=== PATIENT | female | born 1950 | race Caucasian/White ===

== ENCOUNTER → 2017-03-11 | Day surgery (SDC) | payer MEDICARE, OTHER ==
[~2017-03-11] VITALS: Ht 165.1 cm; Wt 61.9 kg
[~2017-03-11] MED LIST: AZU500 PO; Dexamethasone 4 mg/mL Inj IVPUSH PRN; EPHEDrine Sulfate 50 mg/mL Inj IVPUSH PRN; ESTR42.52 VG; GABA-500 PO; HYDROcodone-APAP 5-325 mg Tablet PO PRN; HYDROmorphone 1 mg/mL Inj IVPUSH PRN; HYOS0.3740 PO; Lactated Ringer's 1,000 ML IV ONE; Lactated Ringer's 1,000 ML IV SCH; Lactated Ringer's 500 ML IV PRN; Lidocaine 1%-Epi 1:100,000 20 mL Inj NERVEBLOCK ONE; MULT-1073 PO; MetoCLOpramide 5 mg/mL 2 mL Inj IVPUSH PRN; NABU750T PO; NORE1TAB7 PO; Ondansetron 2 mg/mL 2 mL Inj IVPUSH PRN; POLY17PO6 PO; Phenylephrine 10,000 mCg/mL Inj IVPUSH PRN; Propofol 10,000 mCg/mL 20 mL Inj ONE; TAZA30CR TP; TIMO1DRO3 OP; ZLP5T PO; [UNRECOGNIZED DRUG - CODE] PO; fentaNYL-PF 50 mCg/mL 2 mL Inj IVPUSH PRN; fentaNYL-PF 50 mCg/mL 2 mL Inj ONE
[2017-03-11 06:10] VITALS: BP 138/86; PULSE 71; RESP 17; O2SAT 99
--- NOTE | 2017-03-11 07:22 | PCM.HPANE ---
Patient Data Date of Service: Mar 11, 2017 Surgeon Admitting Provider: Attending Provider:Aaron Thomas DO Primary Care Physician:Sylvester Gilliland MD Other Provider:Willy Sanders Anesthesia Reason for Visit Left Middle Trigger Finger Ht/WT & BMI Height (Feet): 5 Height (Inches): 5.00 Weight (Kilograms): 61.9 Body Mass Index 22.00 Allergies Coded Allergies: No Known Allergies (Unverified , 03/05/17) Past Anesthesia History Anesthesia History: Denies:: Abnormal Airway, Anesthesia Reactions, Difficult Intubation, Fam Anesthesia Reaction, Fam Malignant Hypertherm, Malignant Hyperthermia Diabetes History Hx Diabetes?: No Medications Home Meds Incl Beta Joseline: No Reported Medications Multivit-Min/Folic Acid/Biotin (Women Multivit W-Biotin Gummy)200 Mcg-300 Mcg Tab.chew1 Each PO 03/05/17 Multivits-Min/FA/Lycopene/Lut (Centrum Silver Tablet)1 Each Tablet1 Each PO 03/05/17 Sulfasalazine 500 Mg Tablet1,000 Mg PO BID 30 Days Ref 0 03/05/17 Timolol Maleate/Pf (Timoptic 0.25% Ocudose Drop)1 Each Droperette1 Each OP 03/05/17 Tazarotene (Tazorac)30 Gm Cream..g.30 Gm TP 03/05/17 Nabumetone 750 Mg [id number] Mg PO BID 30 Days 03/05/17 Polyethylene Glycol 3350 (Miralax)17 Gm Powd.pack17 Gm PO 03/05/17 Hyoscyamine ER 0.375 Mg Tablet0.375 Mg PO BID 03/05/17 Gabapentin 100 Mg [id number] Mg PO DAILY 30 Days Ref 0 03/05/17 Norethind AC/Ethinyl Estradiol (Femhrt 0.5 mg-2.5 Mcg Tablet)1 Each Tablet1 Each PO 03/05/17 Estradiol (Estrace)42.5 Gm Cream.appl1 G VG UD #1 TUBE Ref 0 03/05/17 Zolpidem (Ambien)5 Mg Tablet5 Mg PO HS PRN For Insomnia Ref 0 03/05/17 History History of ENT Problems?: No HEENT History: Denies:: Abnormal Airway Cataracts Difficult Intubation Dysphagia Glaucoma Hearing Problem Sinus Problem TMJ Denture Type: None Teeth Condition: Within Normal Limits Hx of Heart Problems?: No Cardiovascular History: Denies:: AICD Abdominal Aortic Aneurism Atrial Fibrillation Cardiac Surgery Chest Pain Congestive Heart Failure Coronary Artery Disease Edema Heart Murmur Hypertension Irregular Heartbeat Pacemaker Peripheral Vascular Rheumatic Fever Thrombophlebitis Valvular Heart Disease Hx of Respiratory Problem?: No Respiratory History: Denies:: Asthma Hx Neurologic Problems?: No Hx of GI Problems?: No Other GI Pertinent History: Hx IBS Hx of Problems?: No Genitourinary History: Denies:: HX of Hemodialysis Kidney Stones Urinary Tract Infection HX of Peritoneal Dialysis: No Skin History: Positive for:: History Skin Disorders? (mild exzemia) Denies:: Pressure Ulcers Hx Musculoskeletal Problems?: Yes Musculoskeletal History: Positive for:: Osteoarthritis (Hands, rt knee) Denies:: Back Injury Degenerative Joint Fibromyalgia Joint Replacement Musculoskeletal Trauma Myasthenia Gravis Rheumatoid Arthritis Systemic Lupus Hx of Psycho/Social Problems?: No Hx Surgeries?: Yes (Tubal, trigger finger, macular hole repaired, cataract surg.) Hx Any Other Health Problems?: Yes Other History: Positive for:: Hospitalization (child ) Denies:: Cancer Endocrine Disease History Blood Transfusions: Positive for:: Accept Blood Products? Denies:: Blood Transfusions Hx Diabetes: No Hx Alcohol Use: NoHx Substance Use: No Stop/Bang S-Snoring: Do You Snore Loudly: No T-Tired: feel tired, fatigued: No O-Obsered: Observed not breath: No P-Blood Pressure: treated: No B- Body Mass Index > 35 kg/m2: No A- Age over 50: Yes N- Neck Large Circumference: No G- Gender Male: No LOLLY Total Score: 1 LOLLY Risk Assessment: Low Risk, <3 Yes Risk Assessment Category Category 1A: Patient has history of documented sleep apnea, and HAS NOT received any narcotic, sedative or anesthesia administration during this stay. Category 1B: Patient has history of documented sleep apnea, and HAS received any narcotic , sedative or anesthesia administration during this stay Category 2: Patient has SUSPECTED Obstructive Sleep Apnea, and HAS received any narcotic , sedative or anesthesia administration during this stay. Category 3: Patient has SUSPECTED Obstructive Sleep Apnea and HAS NOT received narcotic, sedative or anesthesia administration during this stay. Category 4: Outpatient in Procedural Areas with known sleep apnea or who screen positive for High Risk via the STOP/BANG questionnaire. Exam Exam Vital Signs Vital Signs Date Time Temp Pulse Resp B/P Pulse Ox O2 Delivery O2 Flow Rate FiO2 03/11/17 06:10 36.5 71 17 138/86 99 Room Air General Appearance: Alert, Oriented X3, Cooperative, No Acute Distress HEENT/AIRWAY: MP 2 Lungs: Clear to Auscultation, Normal Air Movement Heart: Exam Unremarkable, Regular Rate/Rhythm, No Murmurs/Rubs/Gallops Meds/Labs/Diagnostics Admission Meds Current Medications Lactated Ringer's (Lr) 1,000 ml @ ud STK-MED ONCE IV Last administered on 03/11t 06:26; Start 03/11/17 at 06:26; Stop 03/11/17 at 06:27; Status DC Plan Impression Patient chart reviewed, patient interviewed and anesthestic plan with risks, benefits, and alternatives discussed, and informed consent obtained. NPO per Anesth. Guidelines: Yes ASA Physical Status: ASA2 Mod Systemic Disease Anesthetic Plan: MAC Bene/Risks/Altern/Consents: Yes HP Complete Prior to Induction: Yes Win Olmstead MD Mar 11, 2017 07:22
[2017-03-11 07:48] VITALS: BP 134/59; PULSE 76; RESP 16; O2SAT 100
--- NOTE | 2017-03-11 07:52 | PCM.ANEP1 ---
Post Anesthesia PACU Phase 1 Assessment Date of Service: Mar 11, 2017 Vital Signs 36.6 134/59 74 96% RA Anesthetic Administered: MAC Level of Alertness: Awake, talking LAGUNA's with Equal Strength: Yes Pain: No Nausea or Vomiting: No CV Function & Hydration Stable: Yes Airway Device: Oxygen Delivery: Room Air Lungs: Clear to Auscultation, Normal Air Movement PACU Phase 2 Assessment Complications: No Follow up Care: N/A Patient Instructions Provided: Yes Win Olmstead MD Mar 11, 2017 07:51
[2017-03-11 08:17] VITALS: BP 151/68; PULSE 73; RESP 16; O2SAT 100
[2017-03-11 08:32] VITALS: BP 152/72; PULSE 72; RESP 16; O2SAT 100
--- NOTE | 2017-03-11 16:10 | OP ---
[address] [address] OPERATIVE REPORT PATIENT: IVONNE ROBIN : 1950 MR#: [id number] ADMIT: 03/11/2017 JOB ID: [id number] DATE OF SURGERY: 03/11/2017 PREOPERATIVE DIAGNOSIS(ES): Left middle finger trigger finger. POSTOPERATIVE DIAGNOSIS(ES): Left middle finger trigger finger. PROCEDURE: Left middle finger A1 alicia release. SURGEON: Aaron Thomas D.O. ANESTHESIA: Monitored anesthesia care with local. BRIEF HISTORY: The patient is a pleasant 67-year-old female with a longstanding history of multiple trigger fingers. I treated both of her hands. She had two injections to her left middle finger and still had catching and locking with associated pain. I discussed with her the risks, benefits, alternatives and indications to proceed with a left middle finger A1 alicia release. She understood the risks include, but not limited to, neurovascular injury, tendon injury, infection, recurrent stiffness, persistent pain, all of which may require further intervention. The patient had all questions answered. Consent was signed and placed in the chart. PROCEDURE IN DETAIL: The patient was brought to the operative suite and placed supine on the operating room table. Surgical time-out performed. Everyone in the room was in agreement. After appropriate anesthesia was obtained, the patient's left hand was then prepped and draped in a sterile fashion. A 1 cm short oblique incision was made overlying one of the distal palmar creases directly overlying the A1 alicia to the middle finger. Dissection was carried down to the A1 alicia. Care was taken to protect the surrounding digital neurovascular bundles. The alicia was then released longitudinally in line with the underlying flexor tendons. After full complete release of the A1 alicia, the tendons were easily delivered from the wound without any issue. Copious irrigation was performed followed by closure of the incision with 5-0 nylon in a simple interrupted fashion. The patient was then placed in a bulky soft dressing. ESTIMATED BLOOD LOSS: Less than 1 cc. COMPLICATIONS: None. DISPOSITION: The patient tolerated the procedure well. Anesthesia was reversed. The patient was transferred back to recovery. POSTOPERATIVE PLAN: The patient will followup in my office in two weeks. We will remove the patient's sutures at that time and have her start working on range of motion and scar mobilization.
== END | disposition home or self-care (01) ==
LOC: SAS 05:41
PROVIDERS: ATTEND Orthopaedic Surgery
DX: M65.332 Trigger finger, left middle finger (principal); M19.90 Unspecified osteoarthritis, unspecified site; K58.9 Irritable bowel syndrome, unspecified
CPT/HCPCS: 26055; J2250; J3010; J7120